=== PATIENT | female | born 1960 | race Hispanic/Latino ===

== ENCOUNTER 2018-07-25 15:00 | Outpatient (RCR) | payer OTHER ==
[~2018-07-25 15:00] MED LIST: ASA81 MG; CALCIUM + D 601 EACH; Z.0.AMARYL2 MG; Z.0.AMITRIPTYLINE H7; Z.0.CINNAMON500 MG; Z.0.LOVAZA1 GM; Z.0.PRINIVIL5 MG; Z.0.SYNTHROID200 MCG; Z.0.ZOCOR20 MG
== END 2018-08-02 ==
LOC: PT 15:00
DX: G72.89 Other specified myopathies (principal); R26.89 Other abnormalities of gait and mobility; Z91.89 Other specified personal risk factors, not elsewhere classified

== ENCOUNTER 2018-08-16 14:55 | Outpatient (RCR) | payer OTHER | END 2018-08-30 | LOC: PT 14:55 | DX: G70.89 Other specified myoneural disorders (principal); G72.89 Other specified myopathies; R26.89 Other abnormalities of gait and mobility; Z91.89 Other specified personal risk factors, not elsewhere classified | CPT/HCPCS: 97139 ==

== ENCOUNTER 2021-07-30 08:09 | Emergency (ER) | payer OTHER ==
[~2021-07-30] VITALS: Ht 165.1 cm; Wt 105.7 kg
[2021-07-30 10:16] VITALS: BP 97/63
== END 2021-07-30 10:18 ==
LOC: ER 08:46
DX: U07.1 COVID-19 (principal); I12.0 Hypertensive chronic kidney disease with stage 5 chronic kidney disease or end stage renal disease; E11.22 Type 2 diabetes mellitus with diabetic chronic kidney disease; N18.6 End stage renal disease; Z99.2 Dependence on renal dialysis; K76.9 Liver disease, unspecified; I25.2 Old myocardial infarction; Z85.89 Personal history of malignant neoplasm of other organs and systems
CPT/HCPCS: 93005; 99283

== ENCOUNTER 2021-10-11 00:13 | Observation (INO) | payer OTHER ==
[~2021-10-11] VITALS: Ht 165.1 cm; Wt 105.7 kg
[2021-10-11] VITALS (7 sets, daily range): BP systolic 100–119; BP diastolic 68–84
[2021-10-11] MEDS ORDERED: SODIUM CHLORIDE 0.9% 1000ML 1,000 ML IV STA (00:34)
[2021-10-11 00:42] LABS: BASOPHILS % 0.3 % (0.0-1.0); EOSINOPHILS % 0.5 % (0.0-6.0); HEMATOCRIT 30.7 % (34.2-44.1); HEMOGLOBIN 10.2 g/dL (12.0-16.0); LYMPHOCYTES # (AUTO) 0.6 (1.0-3.2); LYMPHOCYTES % 10.2 % (18.0-39.1); MEAN CORPUSCULAR HEMOGLOBIN 34.7 pg (28-32); MEAN CORPUSCULAR HGB CONC 33.2 g/dL (31-35); MEAN CORPUSCULAR VOLUME 104.4 fL (81-99); MONOCYTES # (AUTO) 0.6 (0.2-0.8); MONOCYTES % 9.1 % (4.4-11.3); NEUTROPHILS # (AUTO) 4.9 (2.1-6.9); NEUTROPHILS % 79.6 % (38.7-80.0); PLATELET COUNT 92 x10e3/uL (140-360); RED BLOOD COUNT 2.94 x10e6/uL (3.6-5.1); RED CELL DISTRIBUTION WIDTH 14.6 % (11.7-14.4)
[2021-10-11] MEDS ORDERED: ONDANSETRON HCL INJ 2MG/ML 2ML 2 MG/ML VIAL IV PRN (00:45)
[2021-10-11 00:54] LABS: ALBUMIN 3.2 g/dL (3.5-5.0); ALBUMIN/GLOBULIN RATIO 0.9 (0.8-2.0); CREATININE, SERUM 3.05 mg/dL (0.57-1.11)
[2021-10-11] MEDS ORDERED: HEPARIN 25,000 UNIT 25,000 UNIT in DEXTROSE 5% 250ML 250 ML IV SCH (01:30)
[2021-10-11] MEDS ORDERED: ASPIRIN 81 MG CHEW TAB PO ONE ×2 (01:30→02:15)
[2021-10-11 01:52] LABS: INR 1.07; PARTIAL THROMBOPLASTIN TIME 33.1 seconds (23.8-35.5); PROTHROMBIN TIME 14.9 seconds (11.9-14.5)
[2021-10-11] MEDS ORDERED: HEPARIN 25,000 UNIT DRIP IV ONE (02:09)
[2021-10-11 04:42] LABS: CLARITY,URINE CLOUDY (CLEAR); COLOR,URINE YELLOW (YELLOW); LEUKOCYTE ESTERASE ,URINE 2+ (NEGATIVE)
[2021-10-11 04:43] LABS: KETONES,URINE TRACE (NEGATIVE); NITRITE,URINE NEGATIVE (NEGATIVE); PROTEIN,URINE DIPSTICK 2+ (NEGATIVE); URINE UROBILINOGEN 0.2 mg/dL (0.2 - 1)
[2021-10-11 04:51] LABS: BACTERIA,URINE MANY /HPF; EPITHELIAL CELLS,URINE MODERATE /LPF; RBC,URINE 21-50 /HPF (0-5); RENAL EPITHELIAL CELLS,URINE FEW; TRANSITIONAL EPI CELLS,URINE FEW; WBC,URINE (MAN) >50 /HPF (0-5)
[2021-10-11] MEDS ORDERED: LANTUS 3ML100 UNITS/ SQ (04:56)
[2021-10-11] MEDS ORDERED: LIDOCAINE1 EAC1 TOP (05:16)
[2021-10-11] MEDS ORDERED: RENVELA0.8 GM PO (05:16)
[2021-10-11] MEDS ORDERED: COMBIVENT RESPIM4 GM IH (05:16)
[2021-10-11] MEDS ORDERED: LEVOTHYROXINE112 MCG PO (05:16)
[2021-10-11] MEDS ORDERED: MIRALAX17 GM PO (05:16)
[2021-10-11] MEDS ORDERED: ONDANSETRON ODT4 MG PO (05:16)
[2021-10-11] MEDS ORDERED: COLACE100 MG PO (05:16)
[2021-10-11] MEDS ORDERED: GUAIFENESI100 MG/5 M PO (05:16)
[2021-10-11] MEDS ORDERED: ATIVAN1 MG PO (05:16)
[2021-10-11] MEDS ORDERED: HYDROCODON-ACE1 EAC9 PO (05:16)
[2021-10-11] MEDS ORDERED: TYLENOL325 MG PO (05:29)
[2021-10-11] MEDS ORDERED: BISACODYL10 MG/30 M RC (05:29)
[2021-10-11] MEDS ORDERED: CYCLOBENZAPRINE5 MG PO (05:29)
[2021-10-11] MEDS ORDERED: NORVASC5 MG PO (05:29)
[2021-10-11] MEDS ORDERED: HUMALOG JU100 UNIT/1 (05:29)
[2021-10-11] MEDS ORDERED: BUDESONIDE0.5 MG/2 M NEB (05:29)
[2021-10-11 09:30] LABS: BASOPHILS % 0.4 % (0.0-1.0); EOSINOPHILS # (AUTO) 0.1 (0.0-0.4); EOSINOPHILS % 1.6 % (0.0-6.0); HEMATOCRIT 31.5 % (34.2-44.1); HEMOGLOBIN 10.2 g/dL (12.0-16.0); LYMPHOCYTES # (AUTO) 0.5 (1.0-3.2); LYMPHOCYTES % 9.7 % (18.0-39.1); MEAN CORPUSCULAR HEMOGLOBIN 34.1 pg (28-32); MEAN CORPUSCULAR HGB CONC 32.4 g/dL (31-35); MEAN CORPUSCULAR VOLUME 105.4 fL (81-99); MONOCYTES # (AUTO) 0.5 (0.2-0.8); MONOCYTES % 9.7 % (4.4-11.3); NEUTROPHILS % 78.4 % (38.7-80.0); PLATELET COUNT 94 x10e3/uL (140-360); RED BLOOD COUNT 2.99 x10e6/uL (3.6-5.1); RED CELL DISTRIBUTION WIDTH 14.9 % (11.7-14.4)
[2021-10-11 09:40] LABS: ALBUMIN/GLOBULIN RATIO 0.8 (0.8-2.0); CALCIUM 10.2 mg/dL (8.4-10.2); CREATININE, SERUM 3.17 mg/dL (0.57-1.11)
[2021-10-11 09:46] LABS: CREATINE KINASE MB 2.7 ng/mL (0-5.0)
[2021-10-11 09:55] LABS: MAGNESIUM 2.2 MG/DL (1.3-2.1); PHOSPHORUS 5.8 MG/DL (2.3-4.7)
[2021-10-11] MEDS ORDERED: GUAIFENESIN 200 MG/10 ML UDC PO PRN (11:30)
[2021-10-11] MEDS ORDERED: ONDANSETRON HCL 4 MG ORAL DISINTEGRATING TAB PO PRN (11:30)
[2021-10-11] MEDS ORDERED: BUDESONIDE 0.5MG/2 ML NEB NEB PRN (11:30)
[2021-10-11] MEDS ORDERED: POLYETHYLENE GLYCOL 3350 17 GM PACK PO PRN (11:30)
[2021-10-11] MEDS ORDERED: HYDROCODONE/APAP 10MG-325MG TAB PO PRN (11:30)
[2021-10-11] MEDS ORDERED: IPRATROPIUM/ALBUTEROL SULFATE 4 GM INH INH PRN (11:30)
[2021-10-11] MEDS ORDERED: ACETAMINOPHEN 325 MG TAB PO PRN (11:30)
[2021-10-11] MEDS: LORAZEPAM 0.5 MG TAB PO SCH ×2 (14:24→20:25)
[2021-10-11 14:49] LABS: CREATINE KINASE MB 2.5 ng/mL (0-5.0)
[2021-10-11] MEDS ORDERED: BALSAM PERU/CASTOR OIL 60 GM OINT...G. TP PRN (16:00)
[2021-10-11] MEDS: DOCUSATE SODIUM 100 MG CAP PO SCH (16:53)
[2021-10-11] MEDS ORDERED: ATORVASTATIN 40 MG TAB PO SCH (21:00)
[2021-10-11] MEDS ORDERED: SIMVASTATIN 40 MG TAB PO SCH (21:00)
[2021-10-12] VITALS: BP 105/89
[2021-10-12 05:15] VITALS: BP 106/76
[2021-10-12 05:23] LABS: BASOPHILS % 0.4 % (0.0-1.0); EOSINOPHILS # (AUTO) 0.1 (0.0-0.4); HEMATOCRIT 30.1 % (34.2-44.1); HEMOGLOBIN 9.6 g/dL (12.0-16.0); LYMPHOCYTES # (AUTO) 0.7 (1.0-3.2); LYMPHOCYTES % 14.5 % (18.0-39.1); MEAN CORPUSCULAR HEMOGLOBIN 34.3 pg (28-32); MEAN CORPUSCULAR HGB CONC 31.9 g/dL (31-35); MEAN CORPUSCULAR VOLUME 107.5 fL (81-99); MONOCYTES # (AUTO) 0.5 (0.2-0.8); MONOCYTES % 11.5 % (4.4-11.3); NEUTROPHILS # (AUTO) 3.3 (2.1-6.9); PLATELET COUNT 87 x10e3/uL (140-360); RED CELL DISTRIBUTION WIDTH 14.7 % (11.7-14.4)
[2021-10-12 05:39] LABS: ALBUMIN 2.9 g/dL (3.5-5.0); ALBUMIN/GLOBULIN RATIO 0.8 (0.8-2.0); CALCIUM 9.8 mg/dL (8.4-10.2); CHOL/HDL RATIO 5.5 (3.0-3.6)
[2021-10-12] MEDS ORDERED: LEVOTHYROXINE SODIUM 100 MCG TAB PO SCH (06:00)
[2021-10-12 06:07] LABS: THYROID STIMULATING HORMONE 14.723 uIU/mL (0.350-4.940)
[2021-10-12] MEDS: LORAZEPAM 0.5 MG TAB PO SCH ×2 (06:41→14:29)
[2021-10-12 07:47] VITALS: BP 107/65
[2021-10-12] MEDS ORDERED: SEVELAMER CARBONATE 800 MG TAB PO SCH (08:00)
[2021-10-12] MEDS ORDERED: GLIMEPIRIDE 2 MG TAB PO SCH (08:00)
[2021-10-12] MEDS: DOCUSATE SODIUM 100 MG CAP PO SCH ×2 (08:46→17:08)
[2021-10-12] MEDS: CARVEDILOL 3.125 MG TAB PO SCH ×2 (08:47→17:09)
[2021-10-12 08:49] VITALS: BP 95/69
[2021-10-12] MEDS ORDERED: AMLODIPINE BESYLATE 5 MG TAB PO SCH (09:00)
[2021-10-12] MEDS ORDERED: ASPIRIN 81 MG ENTERIC COATED PO SCH (09:00)
[2021-10-12] MEDS ORDERED: LOSARTAN POTASSIUM 25 MG TAB PO SCH (09:00)
[2021-10-12 11:30] VITALS: BP 109/73
[2021-10-12] MEDS ORDERED: CEFTRIAXONE 1 GM in SODIUM CHLORIDE 0.9% 50ML 50 ML IV SCH ×2 (12:00→17:00)
[2021-10-12] MEDS ORDERED: SODIUM CHLORIDE 0.9% 1000ML 2,000 ML ONE (13:27)
[2021-10-12] MEDS ORDERED: HEPARIN SOD (PORCINE) 1000 UNIT/ML SDV IV PRN (13:45)
[2021-10-12] MEDS ORDERED: SODIUM CHLORIDE 0.9% 1000ML 2,000 ML IV PRN (13:45)
[2021-10-12 16:02] VITALS: BP 120/43
== END 2021-10-12 19:10 ==
LOC: ER 00:20 → ERHOLD 02:12 → MED/SURG2 03:33
DX: I13.2 Hypertensive heart and chronic kidney disease with heart failure and with stage 5 chronic kidney disease, or end stage renal disease (principal); I25.10 Atherosclerotic heart disease of native coronary artery without angina pectoris; G89.29 Other chronic pain; N18.6 End stage renal disease; Z99.2 Dependence on renal dialysis; I50.22 Chronic systolic (congestive) heart failure; I25.2 Old myocardial infarction; F32.A Depression, unspecified; E11.51 Type 2 diabetes mellitus with diabetic peripheral angiopathy without gangrene; Z79.899 Other long term (current) drug therapy; Z74.01 Bed confinement status; Z88.5 Allergy status to narcotic agent; Z88.8 Allergy status to other drugs, medicaments and biological substances; Z20.822 Contact with and (suspected) exposure to COVID-19; E66.9 Obesity, unspecified; Z68.38 Body mass index [BMI] 38.0-38.9, adult; Z74.09 Other reduced mobility; R77.8 Other specified abnormalities of plasma proteins; R62.7 Adult failure to thrive; E11.22 Type 2 diabetes mellitus with diabetic chronic kidney disease
CPT/HCPCS: 36415 ×2; 71045; 74176; 80053 ×2; 80061; 81001; 82550; 82553; 82948 ×2; 83690; 83735; 84100; 84443; 84484; 85025 ×2; 85610; 85730; 87086; 87186; 90970; 93005; 93306; 94640; 94799 ×2; 99251; 99285; G0378 ×2; J0696; J1644; J7030; U0002

== ENCOUNTER 2021-10-16 15:08 | Emergency (ER) | payer OTHER ==
[~2021-10-16] VITALS: Ht 317.5 cm; Wt 105.7 kg
[~2021-10-16 15:08] MED LIST changes: +ATIVAN1 MG PO; +BISACODYL10 MG/30 M RC; +BUDESONIDE0.5 MG/2 M NEB; +COLACE100 MG PO; +COMBIVENT RESPIM4 GM IH; +CYCLOBENZAPRINE5 MG PO; +GUAIFENESI100 MG/5 M PO; +HUMALOG JU100 UNIT/1; +HYDROCODON-ACE1 EAC9 PO; +LANTUS 3ML100 UNITS/ SQ; +LEVOTHYROXINE112 MCG PO; +LIDOCAINE1 EAC1 TOP; +MIRALAX17 GM PO; +NORVASC5 MG PO; +ONDANSETRON ODT4 MG PO; +RENVELA0.8 GM PO; +TYLENOL325 MG PO
[2021-10-16] MEDS ORDERED: SODIUM CHLORIDE 0.9% 1000ML 1,000 ML IV SCH (15:30)
[2021-10-16] MEDS ORDERED: DEXTROSE 50% SYRINGE 50 ML IV STA (15:35)
[2021-10-16 15:45] LABS: BASOPHILS % 0.2 % (0.0-1.0); EOSINOPHILS # (AUTO) 0.2 (0.0-0.4); EOSINOPHILS % 3.4 % (0.0-6.0); HEMATOCRIT 33.1 % (34.2-44.1); HEMOGLOBIN 10.7 g/dL (12.0-16.0); LYMPHOCYTES # (AUTO) 0.4 (1.0-3.2); LYMPHOCYTES % 8.8 % (18.0-39.1); MEAN CORPUSCULAR HEMOGLOBIN 34.2 pg (28-32); MEAN CORPUSCULAR HGB CONC 32.3 g/dL (31-35); MEAN CORPUSCULAR VOLUME 105.8 fL (81-99); MONOCYTES # (AUTO) 0.4 (0.2-0.8); MONOCYTES % 8.5 % (4.4-11.3); NEUTROPHILS # (AUTO) 3.5 (2.1-6.9); NEUTROPHILS % 78.9 % (38.7-80.0); PLATELET COUNT 109 x10e3/uL (140-360); RED BLOOD COUNT 3.13 x10e6/uL (3.6-5.1); RED CELL DISTRIBUTION WIDTH 14.2 % (11.7-14.4)
[2021-10-16] MEDS ORDERED: DEXTROSE 50% SYRINGE 50 ML IV ONE (15:49)
[2021-10-16] MEDS ORDERED: DEXTROSE 5% 1,000 ML IV ONE (16:00)
[2021-10-16 16:04] LABS: CLARITY,URINE TURBID (CLEAR); COLOR,URINE AMBER (YELLOW); KETONES,URINE TRACE (NEGATIVE); LEUKOCYTE ESTERASE ,URINE LARGE (NEGATIVE); NITRITE,URINE NEGATIVE (NEGATIVE); PROTEIN,URINE DIPSTICK 2+ (NEGATIVE); URINE UROBILINOGEN 0.2 mg/dL (0.2 - 1)
[2021-10-16 16:05] LABS: BACTERIA,URINE MANY /HPF; EPITHELIAL CELLS,URINE MANY /LPF; RBC,URINE >50 /HPF (0-5); WBC,URINE (MAN) >50 /HPF (0-5)
[2021-10-16 16:07] LABS: ALBUMIN 2.9 g/dL (3.5-5.0); ALBUMIN/GLOBULIN RATIO 0.7 (0.8-2.0); ANION GAP 12.5 mmol/L (8-16); CALCIUM 8.5 mg/dL (8.4-10.2); CREATININE, SERUM 1.94 mg/dL (0.57-1.11); POTASSIUM 3.5 mmol/L (3.5-5.1)
[2021-10-16] MEDS ORDERED: CEFTRIAXONE 1 GM VIAL IV NR (16:45)
[2021-10-16] MEDS ORDERED: SODIUM CHLORIDE 0.9% 50ML 50 ML ONE (16:52)
== END 2021-10-16 17:30 ==
LOC: ER 15:15
DX: E11.649 Type 2 diabetes mellitus with hypoglycemia without coma (principal); N39.0 Urinary tract infection, site not specified; I12.0 Hypertensive chronic kidney disease with stage 5 chronic kidney disease or end stage renal disease; E11.22 Type 2 diabetes mellitus with diabetic chronic kidney disease; N18.6 End stage renal disease; Z99.2 Dependence on renal dialysis; E03.9 Hypothyroidism, unspecified; F41.9 Anxiety disorder, unspecified; M54.9 Dorsalgia, unspecified; G89.29 Other chronic pain; I25.2 Old myocardial infarction; Z85.89 Personal history of malignant neoplasm of other organs and systems
CPT/HCPCS: 36415; 71045; 80053; 81001; 82948; 83605; 85025; 87040; 87086; 87186; 99284; J0696; J7030; J7070; J7799